=== PATIENT | male | born 1975 | race Caucasian/White ===

== ENCOUNTER 2016-12-15 12:03 | Emergency (ER) | payer OTHER ==
--- NOTE | 2016-12-15 12:26 | EDPHY ---
H & P Time Seen by Provider: 12/15/16 12:12 HPI/ROS: CHIEF COMPLAINT: Puncture wound right index finger HISTORY OF PRESENT ILLNESS: 41-year-old [id number] male with up-to- date tetanus sustained accidental puncture wound to his right index finger middle phalanx radial aspect when he was using a drill compactor driver and the head went into his finger. Complaining of decreased sensation distal to the area on affected side. Occurred shortly prior to arrival. No limitations in flexion extension at the MCP PIP D IP PHYSICAL EXAM (Prior to examination, patient consented to physical exam, hands were washed and my usual and customary physical exam procedures followed) 1) GENERAL: Well-developed, well-nourished, alert and oriented. Appears to be in no acute distress. 2) HEAD: Normocephalic 3) HEENT: sclera anicteric 4) LUNGS: Breathing comfortably. 5) SKIN: Right index finger middle phalanx radial aspect puncture wound measuring 3 mm. Decreased sensation distally on the affected side 6) MUSCULOSKELETAL: flexion, extension intact at the MCP, PIP, DIP 7) NEUROLOGIC: decreased sensation on affected side distally Smoking Status: Never smoked Constitutional: Initial Vital Signs Temperature (C) 36.4 C 12/15/16 12:06 Heart Rate 66 12/15/16 12:06 Respiratory Rate 18 12/15/16 12:06 Blood Pressure 121/66 H 12/15/16 12:06 O2 Sat (%) 96 12/15/16 12:06 Allergies/Adverse Reactions: Penicillins Allergy (Verified 12/15/16 12:05) family hx; pt does not personally have Home Medications: Medication Instructions Recorded Cephalexin [Keflex] 500 mg PO QID 5 Days 12/15/16 Hydrocodone/APAP 5/325 [Echola 1 tab PO Q6 PRN #5 tab 12/15/16 5/325 (RX)] predniSONE [predniSONE TAPER] 1 each PO 12/15/16 MDM/Departure - MDM Diagnostics: Xray of the right finger interpreted by myself: no definitive acute osseous abnormality , no radiopaque foreign body ED Course/Re-evaluation: This patient's wound has been irrigated and cleansed by ER staff re-examined by myself. He does have decreased sensation distally in the affected side. Will be allowed to heal via secondary intention due to infection concern. He is also started on prophylactic Keflex and given pain medication. I recommend he follow up with [facility] orthopedic/hand surgeon Dr. Rosendo Walden. He is agreeable with this plan. Usual and customary wound precautions and instructions provided. - Depart Disposition: Home, Routine, Self-Care Clinical Impression: Puncture wound of right index finger Condition: Good Instructions: Puncture Wound (ED) Additional Instructions: Return to the ER if you develop redness, swelling, discharge, warmth to the wound, red streaks going up your arm, or any other symptoms that concern you. Prescriptions: Cephalexin [Keflex] 500 mg PO QID 5 Days Hydrocodone/APAP 5/325 [Echola 5/325 (RX)] 1 tab PO Q6 PRN #5 tab PRN Reason: Pain, Severe Referrals: Rosendo Walden MD [Medical Doctor] - 12/17/16 (Dr. Rosendo Walden is orthopedic and hand surgeon)
[2016-12-15] MEDS ORDERED: TDAP ADULT 0.5 ML INJ (BOOSTRIX) IM ONE (12:31)
[2016-12-15 12:55] VITALS: BP 118/80; PULSE 76; RESP 16; TEMP 97.7; O2SAT 98
== END 2016-12-15 12:54 | disposition home or self-care (01) ==
PROC: 3E0234Z Introduction of Serum, Toxoid and Vaccine into Muscle, Percutaneous Approach (ICD-10-PCS; principal; 2016-12-15)
DX: S61.230A Puncture wound without foreign body of right index finger without damage to nail, initial encounter (principal); Z23 Encounter for immunization; W31.1XXA Contact with metalworking machines, initial encounter